=== PATIENT | male | born 1970 | race Caucasian/White ===

== ENCOUNTER → 2018-10-18 | Outpatient (CLI) | payer OTHER ==
[2013-10-05 06:05] VITALS: BP 110/61
[2018-10-18 08:56] LABS: BASO % 1 % (0-3); EOS # 0.1 x10^3/uL (0.0-0.7); EOS % 1 % (0-3); HEMATOCRIT 46.5 % (39.0-53.0); HEMOGLOBIN 16.1 g/dL (13.0-17.5); LYMPH # 1.7 x10^3/uL (1.0-4.8); LYMPH % 30 % (24-48); MEAN CORPUSCULAR HEMOGLOBIN 31 pg (25-35); MEAN CORPUSCULAR HGB CONC 35 g/dL (31-37); MEAN CORPUSCULAR VOLUME 91 fL (79-100); MONO # 0.5 x10^3/uL (0.0-1.1); MONO % 8 % (0-9); NEUT # 3.3 x10^3/uL (1.8-7.7); NEUT % 60 % (31-73); PLATELET COUNT 241 x10^3/uL (140-400); RED BLOOD COUNT 5.11 x10^6/uL (4.30-5.70); RED CELL DISTRIBUTION WIDTH 12.2 % (11.5-14.5); WHITE BLOOD COUNT 5.5 x10^3/uL (4.0-11.0)
[2018-10-18 09:15] LABS: ALBUMIN/GLOBULIN RATIO 1.4 (1.0-1.7); CREATININE 1.1 mg/dL (0.7-1.3); GFR 70.9; POTASSIUM 4.1 mmol/L (3.5-5.1); TOTAL BILIRUBIN 1.1 mg/dL (0.2-1.0); TOTAL PROTEIN 6.8 g/dL (6.4-8.2)
[2018-10-18 09:20] LABS: CHOLESTEROL/HDL RATIO 2.6
== END | disposition home or self-care (01) ==
LOC: LAB 08:31
DX: Z00.00 Encounter for general adult medical examination without abnormal findings (principal); Z12.5 Encounter for screening for malignant neoplasm of prostate
CPT/HCPCS: 36415; 80053; 80061; 84153; 84443; 85025; G0103

== ENCOUNTER → 2018-12-26 | Day surgery (SDC) | payer OTHER ==
[~2018-12-26] MED LIST: FLUT9.9S NS; HYDROmorphone 2 MG/ML VIAL IV PRN; IV RINGERS,LACTATED 1000ML 1,000 ML IV SCH; LIDOCAINE 1% PF 2 ML VIAL. ID PRN; MORPHINE SULFATE 2 MG/ML VIAL. IV PRN; ONDANSETRON PF 4 MG/2 ML VIAL. IV PRN; PROCHLORPERAZINE 10 MG/2 ML VIAL. IV PRN; PROPOFOL 40 ML IV ONE; fentaNYL PF VIAL 100 MCG/2 ML VIAL IV PRN
[2018-12-26 08:55] VITALS: BP 100/59
--- NOTE | 2018-12-26 10:05 | HP ---
ADMIT DATE: 12/26/2018 UPDATED HISTORY AND PHYSICAL REFERRING PHYSICIAN: Meka Dawson. HISTORY OF PRESENT ILLNESS: This is a 48-year-old male with past medical history significant for gastroesophageal reflux disease with stricture, seen for screening colon exam. Bowel habits are regular without diarrhea or constipation. There is no melena and/or hematochezia. Weight and appetite are stable. Family history is unrevealing. He is otherwise without additional complaints. PAST MEDICAL HISTORY: GERD with stricture. ALLERGIES: None. MEDICATIONS: Flonase as needed. SOCIAL HISTORY: He is a nonsmoker, nondrinker. FAMILY HISTORY: Noncontributory. REVIEW OF SYSTEMS: Per records. PAST SURGICAL HISTORY: Significant for vasectomy. PHYSICAL EXAMINATION: GENERAL: Reveals a well-nourished, well-developed male who is alert and cooperative, in no acute distress. VITAL SIGNS: Temperature is 97.7, pulse 72, respiratory rate is 18 and pulse oximetry is 98%. HEENT: Reveals normocephalic, atraumatic head. Pupils and extraocular muscles are not tested. Sclerae anicteric. NECK: Supple. LUNGS: Clear. CARDIOVASCULAR: Reveals an S1, S2 without S3, S4 or appreciable murmur. ABDOMEN: Reveals a soft abdomen, normal bowel sounds without appreciable hepatosplenomegaly. EXTREMITIES: Reveals no cyanosis, clubbing or edema. IMPRESSION: Colorectal screening is warranted at this time. Risks and benefits of procedure including risk of hemorrhage and perforation during the operation have been discussed and the patient is willing to proceed. DEMETRI PENA MD DR: LOVE/hali JOB#: [id number] / [id number] MEKA Moya
--- NOTE | 2018-12-27 13:07 | PATHOLOGY ---
[facility] Accession Number: [id number] . 01 Material submitted: . rectum - RECTAL POLYP . 01 Clinical history: . History of polyps . 02 Diagnosis: Colorectal biopsy, rectal polyp: - Hyperplastic polyp. (JPM:[facility]; 12/27/2018) QMS 12/27/2018 0849 Local . 02 Comment: There are no adenomatous changes or evidence of malignancy. . 02 Electronically signed: . Rhys Oconnor MD, Pathologist NPI- [id number] . 01 Gross description: . The specimen is received in formalin, labeled "Segundo Reyes, rectal polyp". Received is a segment of pale fleming soft tissue measuring 0.5 cm in maximum dimensions. The specimen is submitted entirely in cassette A1. ([facility]; 12/26/2018) QA/QA 12/26/2018 1543 Local . 02 Pathologist provided ICD-10: K62.1 . 02 CPT . 954943 Specimen Comment: A courtesy copy of this report has been sent to [phone], [phone] Specimen Comment: [id number] Specimen Comment: Report sent to / DR HASTINGS Specimen Comment: A duplicate report has been generated due to demographic updates. Performed at: 01 [facility] [address], [place], [place] [id number] MD Segunod Yoder MD Phone: [phone] Performed at: 02 [facility] [address], [place] [id number] MD Rhys Oconnor MD Phone: [phone]
== END ==
LOC: ENDOS 07:28
PROVIDERS: ATTEND Internal Medicine Gastroenterology
DX: Z12.11 Encounter for screening for malignant neoplasm of colon (principal); K62.1 Rectal polyp; K64.0 First degree hemorrhoids; K21.9 Gastro-esophageal reflux disease without esophagitis; D64.9 Anemia, unspecified; K22.2 Esophageal obstruction; Z98.52 Vasectomy status
CPT/HCPCS: 45380; 88305; J2704; 45378

== ENCOUNTER → 2019-09-16 | Outpatient (CLI) | payer OTHER ==
[2018-12-26 08:55] VITALS: BP 100/59
[~2019-09-16] MED LIST changes: -HYDROmorphone 2 MG/ML VIAL IV PRN; -IV RINGERS,LACTATED 1000ML 1,000 ML IV SCH; -LIDOCAINE 1% PF 2 ML VIAL. ID PRN; -MORPHINE SULFATE 2 MG/ML VIAL. IV PRN; -ONDANSETRON PF 4 MG/2 ML VIAL. IV PRN; -PROCHLORPERAZINE 10 MG/2 ML VIAL. IV PRN; -PROPOFOL 40 ML IV ONE; -fentaNYL PF VIAL 100 MCG/2 ML VIAL IV PRN
== END | disposition home or self-care (01) ==
LOC: LAB 10:31
PROVIDERS: ATTEND Internal Medicine Pulmonary Disease
DX: U07.1 COVID-19 (principal); J02.9 Acute pharyngitis, unspecified; R53.81 Other malaise; Z20.828 Contact with and (suspected) exposure to other viral communicable diseases
CPT/HCPCS: U0003-CS

== ENCOUNTER → 2019-10-29 | Outpatient (CLI) | payer OTHER ==
[2018-12-26 08:55] VITALS: BP 100/59
== END | disposition home or self-care (01) ==
LOC: LAB 11:25
PROVIDERS: ATTEND Internal Medicine Pulmonary Disease
DX: Z20.828 Contact with and (suspected) exposure to other viral communicable diseases (principal)
CPT/HCPCS: U0003-CS

== ENCOUNTER → 2020-06-22 | Outpatient (CLI) | payer OTHER ==
[2018-12-26 08:55] VITALS: BP 100/59
[2020-06-22 08:44] LABS: BASO % 1 % (0-3); EOS # 0.1 x10^3/uL (0.0-0.7); EOS % 2 % (0-3); HEMATOCRIT 45.4 % (39.0-53.0); HEMOGLOBIN 15.5 g/dL (13.0-17.5); LYMPH # 1.3 x10^3/uL (1.0-4.8); LYMPH % 26 % (24-48); MEAN CORPUSCULAR HEMOGLOBIN 31 pg (25-35); MEAN CORPUSCULAR HGB CONC 34 g/dL (31-37); MEAN CORPUSCULAR VOLUME 91 fL (79-100); MONO # 0.4 x10^3/uL (0.0-1.1); MONO % 8 % (0-9); NEUT # 3.1 x10^3/uL (1.8-7.7); NEUT % 64 % (31-73); PLATELET COUNT 223 x10^3/uL (140-400); RED CELL DISTRIBUTION WIDTH 12.5 % (11.5-14.5); WHITE BLOOD COUNT 4.9 x10^3/uL (4.0-11.0)
[2020-06-22 09:12] LABS: ALBUMIN/GLOBULIN RATIO 1.7 (1.0-1.7); CALCIUM 8.8 mg/dL (8.5-10.1); GFR 78.8; POTASSIUM 4.8 mmol/L (3.5-5.1); TOTAL PROTEIN 6.4 g/dL (6.4-8.2)
[2020-06-22 09:14] LABS: CHOLESTEROL/HDL RATIO 2.3
== END ==
LOC: LAB 08:12
PROVIDERS: ATTEND Nurse Practitioner
DX: Z00.00 Encounter for general adult medical examination without abnormal findings (principal); Z12.5 Encounter for screening for malignant neoplasm of prostate; R53.83 Other fatigue
CPT/HCPCS: 36415; 80053; 80061; 82306; 84443; 85025; G0103